=== PATIENT | female | born 1980 | race Caucasian/White ===

== ENCOUNTER 2018-06-03 05:21 | Inpatient (IN) ==
[2018-06-03] MEDS ORDERED: Metoprolol Tartrate 25 MG Tablet PO ONE (06:00)
[2018-06-03] MEDS ORDERED: Chlorhexidine Gluconate 2% 1 Pack (2 Cloths) TOPICAL ONE (06:00)
[2018-06-03] MEDS ORDERED: Sodium Chlor 0.9% Inj 500 ML IV.CONT ONE (06:00)
[2018-06-03] MEDS ORDERED: Bupivacaine/Epinephrine Inj 0.25% 50 ML Vial ONE (06:54)
[2018-06-03] MEDS ORDERED: ceFAZolin 2 GM Premix Inj 2 GM/50 ML PIGGYBACK IV.SIG SCH (07:00)
[2018-06-03] MEDS ORDERED: Sugammadex Inj 200 MG/2 ML Vial IV.PUSH ONE (07:13)
[2018-06-03] MEDS ORDERED: fentaNYL Citrate Inj 250 MCG/5 ML Ampul ONE (07:13)
--- NOTE | 2018-06-03 07:47 | P.OP ---
- Preoperative Diagnosis (1) Morbid obesity with BMI of 40.0-44.9, adult - Postoperative Diagnosis (1) Morbid obesity with BMI of 40.0-44.9, adult Procedure: lap sleeve gastrectomy Anesthesia: GETA Surgeon: Benito Reynolds MD Estimated blood loss (mL): 5 Pathology: none sent Operation and Findings: no leak
[2018-06-03] MEDS ORDERED: Bupivacaine PF 0.5% Inj 30 ML Vial ONE (08:45)
[2018-06-03] MEDS ORDERED: Post-op Orders (for Pharmacy) OTHER STA (08:46)
[2018-06-03] MEDS ORDERED: diphenhydrAMINE HCl 12.5 MG/5 ML Elixir UDC PO PRN (08:46)
[2018-06-03] MEDS ORDERED: Dexamethasone Inj 20 MG/5 ML Vial ONE (08:46)
[2018-06-03] MEDS ORDERED: Morphine Inj 4 MG/ML Vial IV.PUSH PRN (08:48)
[2018-06-03] MEDS ORDERED: KCL 20 mEq/D5W/NaCl 0.45% Inj 1,000 ML ONE (09:00)
[2018-06-03] MEDS ORDERED: *Meperidine Inj 25 MG/ML Vial PERIprocedural Use ONLY ONE (09:10)
[2018-06-03] MEDS: KCL 20 mEq/D5W/NaCl 0.45% Inj 1,000 ML IV.CONT SCH ×2 (09:15→17:24)
[2018-06-03] MEDS ORDERED: *morphine SULFATE 4 MG/ML PERIprocedure ONLY ONE ×3 (09:24→09:43)
[2018-06-03] MEDS ORDERED: *Ondansetron Inj 4 MG/2 ML Vial PERIprocedural Use ONLY ONE (09:43)
[2018-06-03] MEDS ORDERED: HYDROmorphone PF Inj 0.5 MG/0.5 ML Syringe ONE (10:00)
[2018-06-03] MEDS ORDERED: *Promethazine Inj 25 MG/ML Vial PERIprocedural use ONLY ONE (10:25)
--- NOTE | 2018-06-03 12:13 | MP ---
cc: Benito Reynolds MD DATE OF OPERATION: 06/03/2018 PREOPERATIVE DIAGNOSES: Morbid obesity, body mass index of 44. POSTOPERATIVE DIAGNOSES: Morbid obesity, body mass index of 44. PROCEDURE PERFORMED: Laparoscopic sleeve gastrectomy over a 36-Lao ViSiGi bougie. SURGEON: Benito Reynolds MD [employer]IZONTAL [employer] OPERATOR: Sasha. ANESTHESIA: GETA. IV FLUIDS: See anesthesia sheet. ESTIMATED BLOOD LOSS: 15 mL DRAINS: None. COMPLICATIONS: None. WOUND CLASSIFICATION: Clean/contaminated. SPECIMENS: None. FINDINGS: No leak on methylene blue. INDICATIONS: The patient is a 38-year-old female who presents with morbid obesity, multiple attempts of weight loss without success. The patient with a BMI of 44. Decision was made for bariatric surgery and sleeve gastrectomy. DETAILS OF PROCEDURE: The patient was taken to the operative suite, placed in supine position, prepped and draped in the usual sterile fashion after induction of general endotracheal anesthesia. A brief timeout was done, stating the correct patient, procedure, surgical site. We were all in agreement with this. Attention first directed to the subxiphoid 15 cm below midline. Local anesthetic injected. A stab taz incision was made. Through the [employer] Optiview 5 mm port was used to enter the abdomen safely. Abdomen insufflated to 15 mmHg of pneumoperitoneum. On cursory inspection, no evidence of injury. The patient was placed in reverse Trendelenburg and a right upper quadrant 5 mm port was placed under direct vision. This was used for liver retraction. Left lobe of liver retracted. Three other ports were placed, including a 12 mm right lower quadrant port a left lower quadrant port and a left lateral quadrant port. Both of these were 5 mm. The patient airplaned to the right and the stomach was identified. The gastrocolic ligament was taken down from the greater curvature of the stomach using Harmonic scalpel. This was done 5 cm from the pylorus, up to the angle of His, 1 cm away from this. The Harmonic was used to take down the posterior attachments to the stomach as well. The calibration device, ViSiGi 36-Lao bougie was then advanced down by Anesthesia. The Endo-GHULAM staple was obtained to create the sleeve gastrectomy with removal approximately 80% of the stomach. Initial green loads followed by a blue load and 2 gold loads. The stomach was completely removed from this. The GHULAM was done with reinforced SeamGuard. The patient's stomach had posterior ligamentous attachments that were already in place. Sleeve sat well without any undue tension. Minimal bleeding from distal staple line was clipped with several 5 mm clips using clip chain person. Next, the methylene blue was used 60 mL x2 without evidence of leak. Again, on calibration, the sleeve was created over a 36-Lao ViSiGi bougie. This was done again 5 cm from the pylorus all the way up to the GE junction, approximately 1 cm away from this. Again, noted no leak on methylene blue. Next Evicel was used to the staple line. The stomach was removed from the right lower quadrant 12 mm port. The ViSiGi was removed, the pneumoperitoneum was removed. Prior the 12 mm port was closed with 0 Vicryl to the fascia, followed by 4-0 Monocryl to all subcuticular incisions. The patient tolerated the procedure well. There were no intraoperative complications. All lap and instrument counts were correct at the end of the procedure. The patient was extubated and taken stable to the PACU. MD JOHN Lopez/ct , 11:41 AM , 11:52 AM
[2018-06-03] MEDS: Enoxaparin Inj 40 MG/0.4 ML Syringe SQ SCH (13:15)
[2018-06-03] MEDS: Acetaminophen-HYDROcodone 325/7.5 Liq 15 ML UDC PO PRN ×2 (15:29→22:06)
[2018-06-03] MEDS ORDERED: Ketorolac Inj 30 MG/ML (IVP) Vial IV.PUSH PRN (15:39)
[2018-06-03 15:44] VITALS: RESP 18
[2018-06-03] MEDS: ceFAZolin 1 GM Premix Inj 1 GM/50 ML PIGGYBACK IV.SIG SCH (15:55)
[2018-06-03] MEDS ORDERED: Scopalamine 1.5 MG Patch T-DERMAL SCH (17:00)
[2018-06-04] MEDS: ceFAZolin 1 GM Premix Inj 1 GM/50 ML PIGGYBACK IV.SIG SCH ×2 (00:39→09:01)
[2018-06-04] MEDS: KCL 20 mEq/D5W/NaCl 0.45% Inj 1,000 ML IV.CONT SCH ×2 (03:38→09:02)
[2018-06-04 05:17] LABS: Baso % (Auto) 0.1 % (0.0-2.0); Hematocrit 38.8 % (35.0-46.0); Hemoglobin 12.7 gm/dL (11.6-15.3); Lymph # (Auto) 1.7 th/mm3 (1.0-4.8); Lymph % (Auto) 17.3 % (9.0-44.0); Mean Corpuscular HGB Conc 32.8 % (32.0-36.0); Mean Corpuscular Hemoglobin 28.6 pg (27.0-34.0); Mean Corpuscular Volume 87.2 fL (80.0-100.0); Mean Platelet Volume 9.5 fL (7.0-11.0); Mono # (Auto) 0.7 th/mm3 (0.0-0.9); Neut # (Auto) 7.5 th/mm3 (1.8-7.7); Neut % (Auto) 75.6 % (16.0-70.0); Platelet Count 206 th/mm3 (150-450); Red Blood Count 4.45 mil/mm3 (4.00-5.30); Red Cell Distribution Width 14.9 % (11.6-17.2); White Blood Count 9.9 th/mm3 (4.0-11.0)
[2018-06-04 05:47] LABS: Anion Gap 5 meq/L (5-15); Blood Urea Nitrogen 8 mg/dL (7-18); Calcium 7.8 mg/dL (8.5-10.1); Carbon Dioxide 25.8 meq/L (21.0-32.0); Chloride 108 meq/L (98-107); Glomerular Filtration Rate Greater Than 89 mL/min (>89); Glucose,Random 146 mg/dL (74-106); Magnesium 2.3 mg/dL (1.5-2.5); Sodium 139 meq/L (136-145)
[2018-06-04] MEDS: Acetaminophen-HYDROcodone 325/7.5 Liq 15 ML UDC PO PRN (06:13)
[2018-06-04] MEDS ORDERED: Methadone 10 MG Tablet PO SCH (11:15)
[2018-06-04] MEDS: Enoxaparin Inj 40 MG/0.4 ML Syringe SQ SCH (11:51)
[2018-06-04 12:39] VITALS: BP 121/71; PULSE 58; TEMP 98.4; O2SAT 94
--- NOTE | 2018-06-04 14:40 | P.PNGS ---
Subjective Patient reports: feels better, pain is less, tolerating liquids well, no flatus (Denies SOB palpitations or chest pain. Nausea and pain well controlled. ) Physical Exam Vital signs: Vital Signs 06/03/18 15:38 06/03/18 15:43 06/03/18 15:59 Temperature 97.8 F Pulse Rate 97 H Respiratory Rate 17 18 18 Blood Pressure 147/77 H Pulse Oximetry 94 L 06/03/18 20:00 06/03/18 20:37 06/03/18 22:00 Temperature 97.9 F Pulse Rate 90 Respiratory Rate 18 18 Blood Pressure 124/71 Pulse Oximetry 99 99 06/04/18 00:00 06/04/18 04:00 06/04/18 08:00 Temperature 98.1 F 98 F 97.8 F Pulse Rate 71 66 64 Respiratory Rate 18 18 18 Blood Pressure 131/72 125/64 110/67 Pulse Oximetry 98 95 95 06/04/18 08:40 06/04/18 12:00 Temperature 98.4 F Pulse Rate 58 L Respiratory Rate 18 Blood Pressure 121/71 Pulse Oximetry 92 L 94 L Intake & Output 06/03/18 06/04/18 06/04/18 18:59 06:59 18:59 Intake Total 2800 / 2800 1680 / 1680 1250 / 1250 Output Total 430 / 430 1400 / 1400 Balance 2370 / 2370 280 / 280 1250 / 1250 Weight 110.9 kg Intake: IV 2400 / 2400 1350 / 1350 1250 / 1250 D5W/1/2NS + KCL 20 mEq Inj 1, 1000 / 1000 1000 / 1000 1000 / 1000 000 ML @ 125 mls/hr IV.CONT . Q8H CORDEL[facility] Rx#:[id number] LR 1000 mL Inj 1,000 ML @ 30 1000 / 1000 mls/hr IV.CONT .Q24H ONE Rx#: [id number] Ofirmev Inj 1,000 mg In 100 ml 100 / 100 200 / 200 100 / 100 @ 400 mls/hr IV.SIG Q6H CORDEL[facility] Rx# :[id number] Ancef 1 GM Premix Inj 1 gm In 50 / 50 50 / 50 50 / 50 50 ml @ 100 mls/hr IV.SIG Q8H CORDELIA Rx#:[id number] Ancef 2 GM Premix Inj 2 gm In 50 / 50 50 ml @ 100 mls/hr IV.SIG ONCE CORDELIA Rx#:[id number] Flagyl 500 MG Inj 100 ML @ 100 200 / 200 100 / 100 100 / 100 mls/hr IV.SIG Q8H CORDELIA Rx#: [id number] Oral 0 / 0 330 / 330 Anesthesia Amount 400 / 400 Output: Urine 400 / 400 1400 / 1400 Estimated Blood Loss 30 / 30 Narrative: GENERAL: SKIN: Warm and dry. HEAD: Normocephalic. EYES: No scleral icterus. No injection or drainage. NECK: Supple, trachea midline. No JVD or lymphadenopathy. CARDIOVASCULAR: Regular rate and rhythm without murmurs, gallops, or rubs. RESPIRATORY: Breath sounds equal bilaterally. No accessory muscle use. GASTROINTESTINAL: Abdomen soft, normal post operative tenderness, laparoscopic sites WNL, mildly distended. MUSCULOSKELETAL: No cyanosis, or edema. BACK: Nontender without obvious deformity. No CVA tenderness. Results - Labs 06/04/18 03:52 06/04/18 03:52 Laboratory Results - last 24 hr 18 06/04/18 03:52 03:52 WBC 9.9 RBC 4.45 Hgb 12.7 Hct 38.8 MCV 87.2 MCH 28.6 MCHC 32.8 RDW 14.9 Plt Count 206 MPV 9.5 Neut % (Auto) 75.6 H Lymph % (Auto) 17.3 Cobb % (Auto) 7.0 Eos % (Auto) 0.0 Baso % (Auto) 0.1 Neut # (Auto) 7.5 Lymph # (Auto) 1.7 Cobb # (Auto) 0.7 Eos # (Auto) 0.0 Baso # (Auto) 0.0 WBC Differential . Differential Comment Auto diff final Sodium 139 Potassium 4.0 Chloride 108 H Carbon Dioxide 25.8 Anion Gap 5 BUN 8 Creatinine 0.70 Estimated GFR Greater than 89 Random Glucose 146 H Calcium 7.8 L Magnesium 2.3 Assessment and Plan - Plan POD #1 Laparoscopic sleeve gastrectomy. Tolerating clear liquids well 60 ml q 30 min. Ambulating, pain and nausea well controlled. Anticipate DC home today if continues to do well. Code Status: full Discussed Condition With: patient
[2018-06-04] MEDS ORDERED: Sucralfate 1 GM Tablet PO SCH (17:00)
--- NOTE | 2018-06-04 17:59 | ECG ---
Date Performed: 06/03/2018 Time Performed: 19:37:30 PTAGE: 38 years EKG: Sinus rhythm NORMAL ECG NO PREVIOUS TRACING DOCTOR: Alistair Johns Interpretating Date/Time 06/04/2018 17:58:03
== END 2018-06-04 16:33 | disposition home or self-care (01) ==
LOC: HSDI 05:21 → N07 10:39
PROVIDERS: ADMIT Surgery; ATTEND Surgery